=== PATIENT | male | born 1995 | race Caucasian/White ===

== ENCOUNTER 2019-03-23 12:41 | Inpatient (IN) | payer OTHER ==
[2019-03-23 13:27] VITALS: BMI 23.4
--- NOTE | 2019-03-23 16:30 | HP ---
CIWA Score Nausea/Vomitin Muscle Tremors: 3 Anxiety: 3 Agitation: 3 Paroxysmal Sweats: 1-Minimal Palms Moist Orientation: 0-Oriented Tacttile Disturbances: 1-Very Mild Itch/Numbness Auditory Disturbances: 1-Very Mild Visual Disturbances: 0-None Headache: 2-Mild CIWA-Ar Total Score: 17 - Admission Criteria OASAS Guidelines: Admission for Medically Managed Detox: Requires at least one of the followin. CIWA greater than 12 2. Seizures within the past 24 hours 3. Delirium tremens within the past 24 hours 4. Hallucinations within the past 24 hours 5. Acute intervention needed for co occurring medical disorder 6. Acute intervention needed for co occurring psychiatric disorder 7. Severe withdrawal that cannot be handled at a lower level of care (continued vomiting, continued diarrhea, abnormal vital signs) requiring intravenous medication and/or fluids 8. Admission ROS [facility] - HPI Chief Complaint: i need help to stop using xanax,klonopin,marijuana,also mmtp 120 mgs/day,last medicated today, syncope seizure last 2 months ago nicotine dependence 1 pack/day,would like nicotine patch and gum no significant period of sobriety plan to go to rehab last detox 2018 [facility] Allergies/Adverse Reactions: Allergies Allergy/AdvReac Type Severity Reaction Status Date / Time No Known Allergies Allergy Verified 03/23/19 13:17 History of Present Illness: this 23 years old male with xanax,klonopin,marijuana dependence seekig detox, mmtp 120 mgs/day seeking detox withdrawal seizure last 2 months ago plaes see chief complaint Exam Limitations: No Limitations - Ebola screening Have you traveled outside of the country in the last 21 days: No (N) Have you had contact with anyone from an Ebola affected area: No Do you have a fever: No - Review of Systems Constitutional: Loss of Appetite, Malaise, Night Sweats, Changes in sleep, Unintentional Wgt. Loss EENT: reports: Tearing, Nose Congestion Respiratory: reports: No Symptoms reported Cardiac: reports: No Symptoms Reported GI: reports: Nausea, Poor Appetite, Poor Fluid Intake : reports: No Symptoms Reported Musculoskeletal: reports: Back Pain, Muscle Pain Integumentary: reports: Dryness Neuro: reports: Headache, Tremors Endocrine: reports: No Symptoms Reported Hematology: reports: No Symptoms Reported Psychiatric: reports: No Sypmtoms Reported, Judgement Intact, Mood/Affect Appropiate, Orientated x3 Other Systems: Reviewed and Negative Patient History - Patient Medical History Hx Anemia: No Hx Asthma: No Hx Chronic Obstructive Pulmonary Disease (COPD): No Hx Cancer: No Hx Cardiac Disorders: No Hx Congestive Heart Failure: No Hx Hypertension: No Hx Hypercholesterolemia: No Hx Pacemaker: No HX Cerebrovascular Accident: No Hx Seizures: Yes (withdrawal seizure last 2 months ago) Hx Dementia: No Hx Diabetes: No Hx Gastrointestinal Disorders: No Hx Liver Disease: No Hx Genitourinary Disorders: No Hx Sexually Transmitted Disorders: No Hx Renal Disease (ESRD): No Hx Thyroid Disease: No Hx Human Immunodeficiency Virus (HIV): No (last 2018 negative) Hx Hepatitis C: No Hx Depression: No Hx Suicide Attempt: No Hx Bipolar Disorder: No Hx Schizophrenia: No Other Medical History: no suicidal,no homicidal - Patient Surgical History Past Surgical History: No - PPD History Previous Implant?: Yes Documented Results: Negative w/o proof Implanted On Prior [facility] Admission?: No PPD to be Administered?: Yes - Smoking Cessation Smoking history: Current every day smoker Have you smoked in the past 12 months: Yes Aproximately how many cigarettes per day: 10 Cigars Per Day: 0 Hx Chewing Tobacco Use: No Initiated information on smoking cessation: Yes 'Breaking Loose' booklet given: 03/23/19 - Substance & Tx. History Hx Alcohol Use: No Hx Substance Use: Yes Substance Use Type: Marijuana, Opiates, Tranquilizers Hx Substance Use Treatment: Yes ([facility] 2017) - Substances abused Alprazolam (Xanax) Substance route: Oral Frequency: Daily Amount used: 3 PILLS (2MG EACH)up to 14 mgs Age of first use: 18 Date of last use: 03/22/19 Benzodiazepine (Klonopin) Substance route: Oral Frequency: 1-2 times per week Amount used: 3 PILLS Age of first use: 18 Date of last use: 03/19/19 Marijuana/Hashish Substance route: Smoking Frequency: Daily Amount used: 2-3 BLUNTS Age of first use: 12 Date of last use: 03/23/19 Heroin Substance route: Injection Frequency: 1-2 times per week Amount used: 7 BAGS Age of first use: 15 Date of last use: 03/20/19 Family Disease History - Family Disease History Family History: Denies Admission [facility] - Vital Signs Vital Signs: Vital Signs - 24 hr 03/23/19 03/23/19 13:18 15:27 Temperature 98.4 F 98.4 F Pulse Rate 61 61 Respiratory 20 20 Rate Blood Pressure 109/64 109/64 - Physical General Appearance: Yes: Moderate Distress, Tremorous, Irritable, Sweating, Anxious HEENTM: Yes: Normocephalic, BEKAH, Pharynx Normal Respiratory: Yes: Within Normal Limits, Lungs Clear, Normal Breath Sounds Neck: Yes: No masses,lesions,Nodules, Supple, Trachea in good position Breast: Yes: Within Normal Limits Cardiology: Yes: Within Normal Limits, Regular Rhythm, Regular Rate, S1, S2 Abdominal: Yes: Within Normal Limits, Normal Bowel Sounds, Non Tender, Flat Genitourinary: Yes: Within Normal Limits Back: Yes: Muscle Spasm Musculoskeletal: Yes: full range of Motion, Back pain, Muscle Pain Extremities: Yes: Tremors Neurological: Yes: clip on sunglasses assembler II-XII NML intact, Fully Oriented, Alert, Motor Strength 5/5 Integumentary: Yes: Dry Lymphatic: Yes: Within Normal Limits - Diagnostic (1) Uncomplicated sedative, hypnotic or anxiolytic withdrawal Current Visit: Yes Status: Acute (2) Withdrawal seizures Current Visit: Yes Status: Acute (3) Syncope Current Visit: Yes Status: Acute (4) Methadone maintenance therapy patient Current Visit: Yes Status: Acute (5) Dehydration Current Visit: Yes Status: Acute (6) Nicotine dependence Current Visit: Yes Status: Acute Cleared for Admission [facility] - [facility]ox or Rehab [facility] Level of Care: Medically Managed Detox Regimen/Protocol: [employer] Urine Drug Screen - Test Device Lot number: [id number] Expiration date: 10/25/20 - Control Is test valid?: Yes - Results Drug screen NEGATIVE: No Urine drug screen results: THC-Marijuana, MTD-Methadone, BZO-Benzodiazepines Inpatient Rehab Admission - Rehab Decision to Admit Inpatient rehab admission?: No
[2019-03-23] MEDS ORDERED: MAGNESIUM HYDROX 2400MG/30ML ORAL SUSPENSION 30 ML CUP PO PRN (16:41)
[2019-03-23] MEDS ORDERED: hydrOXYzine PAMOATE 25 MG CAPSULE (FP) PO PRN (16:41)
[2019-03-23] MEDS ORDERED: BISMUTH SUBSALICYLATE 524 MG/30 ML UD PO PRN (16:41)
[2019-03-23] MEDS ORDERED: MAG HYDROX/AL HYDROX/SIMETH 30 ML UNIT-DOSE CUP PO PRN (16:41)
[2019-03-23] MEDS ORDERED: MENTHOL/PHENOL 1 EACH UD MM PRN (16:41)
[2019-03-23] MEDS ORDERED: ACETAMINOPHEN 325 MG TABLET (FP) PO PRN ×2 (16:41)
[2019-03-23] MEDS ORDERED: MAGNESIUM CITRATE 300 ML BOTTLE PO PRN (16:41)
[2019-03-23] MEDS ORDERED: IBUPROFEN 400 MG TABLET (FP) PO PRN (16:41)
[2019-03-23] MEDS: diazePAM 5 MG TABLET PO PRN (18:05)
[2019-03-23] MEDS: NICOTINE 21 MG/24 HOURS TOPICAL PATCH TD SCH (18:06)
[2019-03-23] MEDS: THIAMINE HCL 100 MG TABLET (FP) PO SCH (21:59)
[2019-03-23] MEDS: MELATONIN 5 MG TABLETS PO PRN (21:59)
[2019-03-23] MEDS: diazePAM 5 MG TABLET PO SCH (21:59)
[2019-03-24 03:21] LABS: PH,URINE 8.5 (5.0-8.0); URINE APPEARANCE CLEAR; URINE BILIRUBIN NEGATIVE (NEGATIVE); URINE COLOR YELLOW; URINE GLUCOSE (UA) NEGATIVE (NEGATIVE); URINE KETONE NEGATIVE (NEGATIVE); URINE LEUK ESTERASE NEGATIVE (NEGATIVE); URINE NITRITE NEGATIVE (NEGATIVE); URINE PROTEIN NEGATIVE (NEGATIVE); URINE UROBILINOGEN 0.2 mg/dL (0.2-1.0)
[2019-03-24] MEDS: diazePAM 5 MG TABLET PO SCH ×3 (05:53→22:22)
[2019-03-24] MEDS: METHADONE HCL 40 MG DISPERSABLE TABLET PO SCH (07:56)
[2019-03-24] MEDS: NICOTINE POLACRILEX 2 MG GUM BUC PRN ×2 (08:33→13:34)
[2019-03-24] MEDS: PRENATAL VITAMINS W/ FOLIC ACID TABLET (FP) PO SCH (10:02)
[2019-03-24] MEDS: NICOTINE 21 MG/24 HOURS TOPICAL PATCH TD SCH (10:02)
[2019-03-24] MEDS: diazePAM 5 MG TABLET PO PRN ×2 (10:03→17:28)
[2019-03-24] MEDS: METHOCARBAMOL 500 MG TABLET PO PRN (10:03)
[2019-03-24 10:09] LABS: ALBUMIN 3.2 g/dl (3.4-5.0); ALK PHOS 64 U/L (45-117); ANION GAP 3 MMOL/L (8-16); BILIRUBIN,TOTAL 0.1 mg/dL (0.2-1); BLOOD UREA NITROGEN 10 mg/dL (7-18); CALCIUM 8.8 mg/dL (8.5-10.1); CHLORIDE 103 mmol/L (98-107); CO2 33 mmol/L (21-32); CREATININE 0.8 mg/dL (0.55-1.3); GLUCOSE,RANDOM 91 mg/dL (74-106); POTASSIUM 4.7 mmol/L (3.5-5.1); SGOT/AST 11 U/L (15-37); SGPT/ALT 17 U/L (13-61); SODIUM 138 mmol/L (136-145); TOT PROT 6.4 g/dl (6.4-8.2)
[2019-03-24 10:19] LABS: HEMATOCRIT 42.1 % (35.4-49); HEMOGLOBIN 14.1 GM/dL (11.7-16.9); MCH 29.5 pg (25.7-33.7); MCHC 33.5 g/dl (32.0-35.9); MEAN CELL VOLUME 88.1 fl (80-96); MEAN PLT VOLUME 8.3 fl (7.5-11.1); PLATELET COUNT 166 K/MM3 (134-434); RBC 4.78 M/mm3 (4.00-5.60); RDW 14.1 % (11.9-15.9); WHITE BLOOD COUNT 6.2 K/mm3 (4.0-10.0)
--- NOTE | 2019-03-24 11:01 | EKG ---
Test Reason : Blood Pressure : / mmHG Vent. Rate : 040 BPM Atrial Rate : 040 BPM P-R Int : 140 ms QRS Dur : 090 ms QT Int : 508 ms P-R-T Axes : 073 050 053 degrees QTc Int : 414 ms MARKED SINUS BRADYCARDIA NONSPECIFIC ST ABNORMALITY ABNORMAL ECG NO PREVIOUS ECGS AVAILABLE Confirmed by CAT CALABRESE MD ([id number]) on 03/24/2019 11:01:32 AM Referred By: Confirmed By:CAT CALABRESE MD
[2019-03-24] MEDS ORDERED: diphenhydrAMINE HCL 50 MG CAPSULE PO PRN (13:12)
--- NOTE | 2019-03-24 13:57 | PN ---
[facility] CIWA - CIWA Score Nausea/Vomitin-No Nausea/No Vomiting Muscle Tremors: 3 Anxiety: 4-Mod. Anxious/Guarded Agitation: 0-Normal Activity Paroxysmal Sweats: No Perspiration Orientation: 2-Disoriented Date<2 days Tacttile Disturbances: 2-Mild Itch/Numbness/Burn Auditory Disturbances: 1-Very Mild Visual Disturbances: 2-Mild Sensitivity Headache: 0-None Present CIWA-Ar Total Score: 14 S Progress Note (SOAP) Subjective: Tremors, Body Aches, Interrupted sleep, Anxiety, Diarrhea. Objective: PATIENT A & O X 2 (UNCERTAIN ABOUT CURRENT DAY / DATE). PATIENT OBSERVED AMBULATING ON UNIT UNASSISTED. IN NO ACUTE DISTRESS. 03/24/19 13:55 Vital Signs Temperature 98.6 F 03/24/19 13:03 Pulse Rate 85 03/24/19 13:03 Respiratory Rate 18 03/24/19 13:03 Blood Pressure 123/79 03/24/19 13:03 O2 Sat by Pulse Oximetry (%) Laboratory Tests 03/23/19 03/24/19 03/24/19 22:58 07:00 07:00 WBC 6.2 RBC 4.78 Hgb 14.1 Hct 42.1 MCV 88.1 MCH 29.5 MCHC 33.5 RDW 14.1 Plt Count 166 MPV 8.3 Sodium 138 Potassium 4.7 Chloride 103 Carbon Dioxide 33 H Anion Gap 3 L BUN 10 Creatinine 0.8 Creat Clearance w eGFR 122.03 Random Glucose 91 Calcium 8.8 Total Bilirubin 0.1 L AST 11 L ALT 17 Alkaline Phosphatase 64 Total Protein 6.4 Albumin 3.2 L Urine Color Yellow Urine Appearance Clear Urine pH 8.5 H Ur Specific [place] 1.008 L Urine Protein Negative Urine Glucose (UA) Negative Urine Ketones Negative Urine Blood Negative Urine Nitrite Negative Urine Bilirubin Negative Urine Urobilinogen 0.2 Ur Leukocyte Esterase Negative RPR Titer 03/24/19 07:00 WBC RBC Hgb Hct MCV MCH MCHC RDW Plt Count MPV Sodium Potassium Chloride Carbon Dioxide Anion Gap BUN Creatinine Creat Clearance w eGFR Random Glucose Calcium Total Bilirubin AST ALT Alkaline Phosphatase Total Protein Albumin Urine Color Urine Appearance Urine pH Ur Specific [place] Urine Protein Urine Glucose (UA) Urine Ketones Urine Blood Urine Nitrite Urine Bilirubin Urine Urobilinogen Ur Leukocyte Esterase RPR Titer Nonreactive LABS NOTED. Assessment: 03/24/19 13:56 WITHDRAWAL SYMPTOMS. Plan: CONTINUE DETOX. INCREASE DAILY PO FLUID / WATER INTAKE. PRN BENADRYL PO FOR DIARRHEA.
[2019-03-24] MEDS: THIAMINE HCL 100 MG TABLET (FP) PO SCH (22:22)
[2019-03-24] MEDS: MELATONIN 5 MG TABLETS PO PRN (22:23)
[2019-03-25] MEDS: METHADONE HCL 40 MG DISPERSABLE TABLET PO SCH (05:51)
[2019-03-25] MEDS: diazePAM 5 MG TABLET PO PRN ×3 (05:55→16:47)
[2019-03-25] MEDS: NICOTINE POLACRILEX 2 MG GUM BUC PRN ×2 (08:45→13:35)
[2019-03-25] MEDS: METHOCARBAMOL 500 MG TABLET PO PRN (09:16)
[2019-03-25] MEDS: PRENATAL VITAMINS W/ FOLIC ACID TABLET (FP) PO SCH (09:21)
[2019-03-25] MEDS: NICOTINE 21 MG/24 HOURS TOPICAL PATCH TD SCH (09:21)
[2019-03-25] MEDS: diazePAM 5 MG TABLET PO SCH ×2 (09:21→21:53)
--- NOTE | 2019-03-25 15:35 | PN ---
[facility] CIWA - CIWA Score Nausea/Vomitin-Mild Nausea/No Vomiting Muscle Tremors: 2 Anxiety: 3 Agitation: 2 Paroxysmal Sweats: 1-Minimal Palms Moist Orientation: 1-Uncertain about Date Tacttile Disturbances: 0-None Auditory Disturbances: 0-None Visual Disturbances: 0-None Headache: 1-Very Mild CIWA-Ar Total Score: 11 S Progress Note (SOAP) Subjective: received methadone 120 mg po today feeling ok reporting taking xanax for anxiety that long history of anxiety treated with xanax patient requesting xanax prescription upon discharge discuss risk of xanax discuss follow up with psychiatrist for xanax upon discharge to the community Objective: 03/25/19 15:33 Vital Signs Temperature 97.5 F L 03/25/19 14:12 Pulse Rate 62 03/25/19 14:12 Respiratory Rate 18 03/25/19 14:12 Blood Pressure 95/52 L 03/25/19 14:12 O2 Sat by Pulse Oximetry (%) Laboratory Last Values WBC 6.2 K/mm3 (4.0-10.0) 03/24/19 07:00 RBC 4.78 M/mm3 (4.00-5.60) 03/24/19 07:00 Hgb 14.1 GM/dL (11.7-16.9) 03/24/19 07:00 Hct 42.1 % (35.4-49) 03/24/19 07:00 MCV 88.1 fl (80-96) 03/24/19 07:00 MCH 29.5 pg (25.7-33.7) 03/24/19 07:00 MCHC 33.5 g/dl (32.0-35.9) 03/24/19 07:00 RDW 14.1 % (11.9-15.9) 03/24/19 07:00 Plt Count 166 K/MM3 (134-434) 03/24/19 07:00 MPV 8.3 fl (7.5-11.1) 03/24/19 07:00 Sodium 138 mmol/L (136-145) 03/24/19 07:00 Potassium 4.7 mmol/L (3.5-5.1) 03/24/19 07:00 Chloride 103 mmol/L (98-107) 03/24/19 07:00 Carbon Dioxide 33 mmol/L (21-32) H 03/24/19 07:00 Anion Gap 3 MMOL/L (8-16) L 03/24/19 07:00 BUN 10 mg/dL (7-18) 03/24/19 07:00 Creatinine 0.8 mg/dL (0.55-1.3) 03/24/19 07:00 Creat Clearance w eGFR 122.03 (>60) 03/24/19 07:00 Random Glucose 91 mg/dL (74-106) 03/24/19 07:00 Calcium 8.8 mg/dL (8.5-10.1) 03/24/19 07:00 Total Bilirubin 0.1 mg/dL (0.2-1) L 03/24/19 07:00 AST 11 U/L (15-37) L 03/24/19 07:00 ALT 17 U/L (13-61) 03/24/19 07:00 Alkaline Phosphatase 64 U/L (45-117) 03/24/19 07:00 Total Protein 6.4 g/dl (6.4-8.2) 03/24/19 07:00 Albumin 3.2 g/dl (3.4-5.0) L 03/24/19 07:00 Urine Color Yellow 03/23/19 22:58 Urine Appearance Clear 03/23/19 22:58 Urine pH 8.5 (5.0-8.0) H 03/23/19 22:58 Ur Specific [place] 1.008 (1.010-1.035) L 03/23/19 22:58 Urine Protein Negative (NEGATIVE) 03/23/19 22:58 Urine Glucose (UA) Negative (NEGATIVE) 03/23/19 22:58 Urine Ketones Negative (NEGATIVE) 03/23/19 22:58 Urine Blood Negative (NEGATIVE) 03/23/19 22:58 Urine Nitrite Negative (NEGATIVE) 03/23/19 22:58 Urine Bilirubin Negative (NEGATIVE) 03/23/19 22:58 Urine Urobilinogen 0.2 mg/dL (0.2-1.0) 03/23/19 22:58 Ur Leukocyte Esterase Negative (NEGATIVE) 03/23/19 22:58 RPR Titer Nonreactive (NONREACTIVE) 03/24/19 07:00 lab noted Assessment: 03/25/19 15:34 benzo withdrawal sx psychiatric referral that patient requesying to be seen by psychiatrist of anxiety Plan: continue detox anxiety referral to psychiatrist
[2019-03-25] MEDS ORDERED: diphenhydrAMINE HCL 25 MG CAPSULE (FP) PO ONE (20:45)
[2019-03-25] MEDS: THIAMINE HCL 100 MG TABLET (FP) PO SCH (21:53)
[2019-03-26] MEDS: METHADONE HCL 40 MG DISPERSABLE TABLET PO SCH (05:26)
[2019-03-26] MEDS ORDERED: diazePAM 5 MG TABLET PO SCH (06:00)
[2019-03-26 06:35] VITALS: BP 99/56; PULSE 53; TEMP 97.4
[2019-03-26] MEDS: diazePAM 5 MG TABLET PO PRN (07:47)
[2019-03-26] MEDS: NICOTINE 21 MG/24 HOURS TOPICAL PATCH TD SCH (09:09)
[2019-03-26] MEDS: PRENATAL VITAMINS W/ FOLIC ACID TABLET (FP) PO SCH (09:09)
--- NOTE | 2019-03-26 11:43 | DS ---
[facility] Detox Discharge Summary Admission Date: 03/23/19 Discharge Date: 03/26/19 - History Present History: Sedative Dependence Additional Comments: 23 years old male admitted on 03/23/19 for benzo withdrawal stabilization feeling better today wants to return to methadone program for medical and mental issues aftercare community self help group denies suicidal ideation alert no acute distress Pertinent Past History: bring in medication list and lab report to follow up appointment - Physical Exam Results Vital Signs: Vital Signs Temperature 97.4 F L 03/26/19 06:33 Pulse Rate 53 L 03/26/19 06:33 Respiratory Rate 18 03/26/19 06:33 Blood Pressure 99/56 L 03/26/19 06:33 O2 Sat by Pulse Oximetry (%) Pertinent Admission Physical Exam Findings: benzo withdrawal sx Laboratory Last Values WBC 6.2 K/mm3 (4.0-10.0) 03/24/19 07:00 RBC 4.78 M/mm3 (4.00-5.60) 03/24/19 07:00 Hgb 14.1 GM/dL (11.7-16.9) 03/24/19 07:00 Hct 42.1 % (35.4-49) 03/24/19 07:00 MCV 88.1 fl (80-96) 03/24/19 07:00 MCH 29.5 pg (25.7-33.7) 03/24/19 07:00 MCHC 33.5 g/dl (32.0-35.9) 03/24/19 07:00 RDW 14.1 % (11.9-15.9) 03/24/19 07:00 Plt Count 166 K/MM3 (134-434) 03/24/19 07:00 MPV 8.3 fl (7.5-11.1) 03/24/19 07:00 Sodium 138 mmol/L (136-145) 03/24/19 07:00 Potassium 4.7 mmol/L (3.5-5.1) 03/24/19 07:00 Chloride 103 mmol/L (98-107) 03/24/19 07:00 Carbon Dioxide 33 mmol/L (21-32) H 03/24/19 07:00 Anion Gap 3 MMOL/L (8-16) L 03/24/19 07:00 BUN 10 mg/dL (7-18) 03/24/19 07:00 Creatinine 0.8 mg/dL (0.55-1.3) 03/24/19 07:00 Creat Clearance w eGFR 122.03 (>60) 03/24/19 07:00 Random Glucose 91 mg/dL (74-106) 03/24/19 07:00 Calcium 8.8 mg/dL (8.5-10.1) 03/24/19 07:00 Total Bilirubin 0.1 mg/dL (0.2-1) L 03/24/19 07:00 AST 11 U/L (15-37) L 03/24/19 07:00 ALT 17 U/L (13-61) 03/24/19 07:00 Alkaline Phosphatase 64 U/L (45-117) 03/24/19 07:00 Total Protein 6.4 g/dl (6.4-8.2) 03/24/19 07:00 Albumin 3.2 g/dl (3.4-5.0) L 03/24/19 07:00 Urine Color Yellow 03/23/19 22:58 Urine Appearance Clear 03/23/19 22:58 Urine pH 8.5 (5.0-8.0) H 03/23/19 22:58 Ur Specific [place] 1.008 (1.010-1.035) L 03/23/19 22:58 Urine Protein Negative (NEGATIVE) 03/23/19 22:58 Urine Glucose (UA) Negative (NEGATIVE) 03/23/19 22:58 Urine Ketones Negative (NEGATIVE) 03/23/19 22:58 Urine Blood Negative (NEGATIVE) 03/23/19 22:58 Urine Nitrite Negative (NEGATIVE) 03/23/19 22:58 Urine Bilirubin Negative (NEGATIVE) 03/23/19 22:58 Urine Urobilinogen 0.2 mg/dL (0.2-1.0) 03/23/19 22:58 Ur Leukocyte Esterase Negative (NEGATIVE) 03/23/19 22:58 RPR Titer Nonreactive (NONREACTIVE) 03/24/19 07:00 lab noted - Treatment Hospital Course: Detox Protocol Followed, Detoxed Safely, Responded well, Discharged Condition Good, Rehab Referral Accepted Patient has Accepted a Rehab Referral to: methadone maintenance program - Medication Discharge Medications: Ambulatory Orders Methadone [Dolophine -] 120 mg PO DAILY 03/23/19 - Diagnosis (1) Methadone maintenance therapy patient Status: Chronic (2) Nicotine dependence Status: Acute Qualifiers: Nicotine product type: cigarettes Substance use status: in withdrawal Qualified Code(s): F17.213 - Nicotine dependence, cigarettes, with withdrawal (3) Uncomplicated sedative, hypnotic or anxiolytic withdrawal Status: Acute - AMA Did Patient Leave Against Medical Advice: No
== END 2019-03-26 08:55 | disposition home or self-care (01) | DRG 773 ==
LOC: YASAS 12:41 → Y3N 17:00
PROVIDERS: ADMIT Surgery; ATTEND Surgery
PROC: HZ2ZZZZ Detoxification Services for Substance Abuse Treatment (ICD-10-PCS; principal; 2019-03-23)
DX: F13.230 Sedative, hypnotic or anxiolytic dependence with withdrawal, uncomplicated (principal); F11.20 Opioid dependence, uncomplicated; F17.213 Nicotine dependence, cigarettes, with withdrawal; E86.0 Dehydration; R55 Syncope and collapse; G40.509 Epileptic seizures related to external causes, not intractable, without status epilepticus
CPT/HCPCS: 36415; 80053; 81003; 85027; 86593; 93005; 93010

== ENCOUNTER 2019-05-19 14:54 | Inpatient (IN) | payer OTHER ==
[2019-05-19 17:00] VITALS: BMI 22.3
--- NOTE | 2019-05-19 18:44 | HP ---
CIWA Score Nausea/Vomitin-Mild Nausea/No Vomiting Muscle Tremors: 2 Anxiety: 5 Agitation: 6 Paroxysmal Sweats: 1-Minimal Palms Moist Orientation: 0-Oriented Tacttile Disturbances: 0-None Auditory Disturbances: 0-None Visual Disturbances: 0-None Headache: 0-None Present CIWA-Ar Total Score: 15 - Admission Criteria OASAS Guidelines: Admission for Medically Managed Detox: Requires at least one of the followin. CIWA greater than 12 2. Seizures within the past 24 hours 3. Delirium tremens within the past 24 hours 4. Hallucinations within the past 24 hours 5. Acute intervention needed for co occurring medical disorder 6. Acute intervention needed for co occurring psychiatric disorder 7. Severe withdrawal that cannot be handled at a lower level of care (continued vomiting, continued diarrhea, abnormal vital signs) requiring intravenous medication and/or fluids 8. Patient presents the following: CIWA greater than 12 Admission Criteria Met: Admission criteria met Admission ROS S - HPI Chief Complaint: xanax/klonopin detox 23 yo with a long h/o benzo use, on methadone program in [place]. Here for detox. h/o anxiety pt with recent laceration- with splint in place- pt has dressing change material with him- pt will keep with his property DUR- no meds Allergies/Adverse Reactions: Allergies Allergy/AdvReac Type Severity Reaction Status Date / Time No Known Allergies Allergy Verified 05/19/19 16:52 - Ebola screening Have you traveled outside of the country in the last 21 days: No Have you had contact with anyone from an Ebola affected area: No Patient History - Patient Medical History Hx Anemia: No Hx Asthma: No Hx Chronic Obstructive Pulmonary Disease (COPD): No Hx Cancer: No Hx Cardiac Disorders: No Hx Congestive Heart Failure: No Hx Hypertension: No Hx Hypercholesterolemia: No Hx Pacemaker: No HX Cerebrovascular Accident: No Hx Seizures: Yes (withdrawal seizure last 2 months ago) Hx Dementia: No Hx Diabetes: No Hx Gastrointestinal Disorders: No Hx Liver Disease: No Hx Genitourinary Disorders: No Hx Sexually Transmitted Disorders: No Hx Renal Disease (ESRD): No Hx Thyroid Disease: No Hx Human Immunodeficiency Virus (HIV): No (last 2017 negative) Hx Hepatitis C: No Hx Depression: No Hx Suicide Attempt: No Hx Bipolar Disorder: No Hx Schizophrenia: No - Patient Surgical History Past Surgical History: No - PPD History Date: 03/25/19 - Smoking Cessation Smoking history: Current every day smoker Have you smoked in the past 12 months: Yes Aproximately how many cigarettes per day: 20 Cigars Per Day: 0 Hx Chewing Tobacco Use: No Initiated information on smoking cessation: Yes 'Breaking Loose' booklet given: 05/19/19 - Substances abused Alprazolam (Xanax) Substance route: Oral Frequency: Daily Amount used: 3 PILLS (2MG EACH)up to 14 mgs Age of first use: 18 Date of last use: 05/18/19 Benzodiazepine (Klonopin) Substance route: Oral Frequency: 1-2 times per week Amount used: 3 PILLS Age of first use: 18 Date of last use: 05/18/19 Marijuana/Hashish Substance route: Smoking Frequency: Daily Amount used: 2-3 BLUNTS Age of first use: 12 Date of last use: 05/19/19 Heroin Substance route: Injection Frequency: 1-2 times per week Amount used: 7 BAGS Age of first use: 15 Date of last use: 05/18/19 Admission Physical Exam [facility] - Vital Signs Vital Signs: Vital Signs - 24 hr 05/19/19 16:52 Temperature 98.2 F Pulse Rate 71 Respiratory 18 Rate Blood Pressure 114/66 - Physical General Appearance: Yes: Moderate Distress HEENTM: Yes: Within Normal Limits, Hearing grossly Normal Respiratory: Yes: Within Normal Limits Neck: Yes: Within Normal Limits Cardiology: Yes: Within Normal Limits, S1, S2 Back: Yes: Within Normal Limits Extremities: Yes: Other (L middle finger with laceration- with splint in place) Neurological: Yes: Within Normal Limits, Fully Oriented Integumentary: Yes: Within Normal Limits, Track [place] Breathalyzer - Breathalyzer Breathalyzer: 0 Urine Drug Screen - Test Device Lot number: [id number] Expiration date: 01/23/21 - Control Is test valid?: Yes - Results Drug screen NEGATIVE: No Urine drug screen results: THC-Marijuana, MOP-Opiates, MTD-Methadone, BZO- Benzodiazepines Inpatient Rehab Admission - Rehab Decision to Admit Inpatient rehab admission?: No
[2019-05-19] MEDS ORDERED: BISMUTH SUBSALICYLATE 524 MG/30 ML UD PO PRN (18:52)
[2019-05-19] MEDS ORDERED: ONDANSETRON *ODT* 4 MG TABLET SL PRN (18:52)
[2019-05-19] MEDS ORDERED: ACETAMINOPHEN 325 MG TABLET (FP) PO PRN ×2 (18:52)
[2019-05-19] MEDS ORDERED: MAGNESIUM CITRATE 300 ML BOTTLE PO PRN (18:52)
[2019-05-19] MEDS ORDERED: MAGNESIUM HYDROX 2400MG/30ML ORAL SUSPENSION 30 ML CUP PO PRN (18:52)
[2019-05-19] MEDS ORDERED: diazePAM 5 MG TABLET PO ONE (18:52)
[2019-05-19] MEDS ORDERED: MENTHOL/PHENOL 1 EACH UD MM PRN (18:52)
[2019-05-19] MEDS ORDERED: MAG HYDROX/AL HYDROX/SIMETH 30 ML UNIT-DOSE CUP PO PRN (18:52)
[2019-05-19] MEDS: hydrOXYzine PAMOATE 50 MG CAPSULE (FP) PO PRN (20:00)
[2019-05-19] MEDS: NICOTINE POLACRILEX 4 MG GUM BUC PRN (20:30)
[2019-05-19] MEDS ORDERED: QUEtiapine FUMARATE 50 MG TABLET PO SCH (22:00)
[2019-05-19] MEDS: THIAMINE HCL 100 MG TABLET (FP) PO SCH (22:28)
[2019-05-19] MEDS: diazePAM 5 MG TABLET PO SCH (22:28)
[2019-05-19] MEDS: MELATONIN 5 MG TABLETS PO PRN (22:28)
[2019-05-20] MEDS: diazePAM 5 MG TABLET PO SCH ×3 (05:10→22:26)
[2019-05-20] MEDS: diazePAM 5 MG TABLET PO PRN ×3 (07:24→17:51)
[2019-05-20] MEDS: hydrOXYzine PAMOATE 50 MG CAPSULE (FP) PO PRN ×3 (07:24→22:25)
[2019-05-20] MEDS: NICOTINE POLACRILEX 4 MG GUM BUC PRN (07:32)
[2019-05-20] MEDS ORDERED: METHADONE HCL 40 MG DISPERSABLE TABLET PO ONE (07:45)
[2019-05-20 10:09] LABS: HEMOGLOBIN 14.5 GM/dL (11.7-16.9); MCH 29.1 pg (25.7-33.7); MCHC 32.9 g/dl (32.0-35.9); MEAN CELL VOLUME 88.3 fl (80-96); MEAN PLT VOLUME 8.6 fl (7.5-11.1); RBC 4.99 M/mm3 (4.00-5.60); RDW 13.5 % (11.9-15.9); WHITE BLOOD COUNT 5.7 K/mm3 (4.0-10.0)
[2019-05-20 10:21] LABS: ALBUMIN 3.4 g/dl (3.4-5.0); BILIRUBIN,TOTAL 0.2 mg/dL (0.2-1); BLOOD UREA NITROGEN 12.5 mg/dL (7-18); CALCIUM 9.1 mg/dL (8.5-10.1); CREATININE 0.9 mg/dL (0.55-1.3); POTASSIUM 4.5 mmol/L (3.5-5.1); TOT PROT 6.4 g/dl (6.4-8.2)
[2019-05-20] MEDS: PRENATAL VITAMINS W/ FOLIC ACID TABLET (FP) PO SCH (10:24)
[2019-05-20] MEDS: METHOCARBAMOL 500 MG TABLET PO PRN ×2 (10:26→17:51)
[2019-05-20] MEDS: NICOTINE 21 MG/24 HOURS TOPICAL PATCH TD SCH (10:27)
[2019-05-20 10:48] LABS: PLATELET COUNT 191 K/MM3 (134-434)
[2019-05-20] MEDS: IBUPROFEN 400 MG TABLET (FP) PO PRN (13:47)
[2019-05-20] MEDS: cloNIDine HCL 0.1 MG TABLET PO PRN ×2 (13:47→19:29)
--- NOTE | 2019-05-20 15:11 | CONSULT ---
[facility] Psychiatric Consult - Data Date of interview: 05/20/19 Admission source: [facility] Identifying data: Readmission to [facility] for this 23 y/o male self- referred for detoxification (heroin, cannabis, xanax). Examined at [address] [place] [address]. Patient is single, a father of one, homeless (intermediate), unemployed and supported on welfare. Substance Abuse History: Confirmed by patient. Details in current [facility] report : Smoking history: Current every day smoker. Have you smoked in the past 12 months: Yes. Aproximately how many cigarettes per day: 20. Cigars Per Day: 0. Hx Chewing Tobacco Use: No. Initiated information on smoking cessation: Yes. 'Breaking Loose' booklet given: 05/19/19. - Substances abused. Alprazolam (Xanax). Substance route: Oral. Frequency: Daily. Amount used: 3 PILLS (2MG EACH)up to 14 mgs. Age of first use: 18. Date of last use: . Benzodiazepine (Klonopin). Substance route: Oral. Frequency: 1-2 times per week. Amount used: 3 PILLS. Age of first use: 18. Date of last use : 05/18/19. Marijuana/Hashish. Substance route: Smoking. Frequency: Daily. Amount used: 2-3 BLUNTS. Age of first use: 12. Date of last use: 05/19. Heroin. Substance route: Injection. Frequency: 1-2 times per week. Amount used: 7 BAGS. Age of first use: 15. Date of last use: 05/18/19 Medical History: History of withdrawal-related seizures. Noted left middle finger in a splint (injured prior to [facility] visit). Psychiatric History: Patient denies history of psychiatric hospitalizations. Mr Kirkland states that he used to be on wellbutrin, seroquel and zoloft. No psychiatric OPD care. Maintained on methadone 120 mg/day at the [place] [facility] program ([facility]). Patient denies history of suicide attempts. Physical/Sexual Abuse/Trauma History: Patient denies. Additional Comment: Urine drug screen results: THC-Marijuana, MOP-Opiates, MTD- Methadone, BZO-Benzodiazepines. Noted. Mental Status Exam - Mental Status Exam Alert and Oriented to: Time, Place, Person Cognitive Function: Good Patient Appearance: Well Groomed Mood: Nervous, Withdrawn, Anxious Affect: Labile Patient Behavior: Inappropriate (medication-seeking), Restless, Cooperative Speech Pattern: Clear Voice Loudness: Normal Thought Process: Goal Oriented Thought Disorder: Not Present Hallucinations: Denies Suicidal Ideation: Denies Homicidal Ideation: Denies Insight/Judgement: Poor Sleep: Poorly, Difficulty falling asleep Appetite: Good Muscle strength/Tone: Normal Gait/Station: Normal Psychiatric Findings - Problem List ([place] 1, 2,3) (1) Uncomplicated sedative, hypnotic or anxiolytic withdrawal Current Visit: Yes Status: Acute (2) Opioid dependence on agonist therapy Current Visit: Yes Status: Chronic (3) Cannabis dependence Current Visit: Yes Status: Chronic (4) Nicotine dependence Current Visit: Yes Status: Chronic Qualifiers: Nicotine product type: cigarettes Substance use status: in withdrawal Qualified Code(s): F17.213 - Nicotine dependence, cigarettes, with withdrawal (5) Substance induced mood disorder Current Visit: Yes Status: Chronic (6) Insomnia Current Visit: Yes Status: Chronic - Initial Treatment Plan Initial Treatment Plan: Psychoeducation. Sleep hygiene. Detoxification. Seroquel 100 mg po hs. Side effects/benefits discussed with patient (self request). Verbal consent granted to MD. Sar[place].
--- NOTE | 2019-05-20 15:30 | PN ---
S CIWA - CIWA Score Nausea/Vomitin-No Nausea/No Vomiting Muscle Tremors: 2 Anxiety: 4-Mod. Anxious/Guarded Agitation: 5 Paroxysmal Sweats: 2 Orientation: 0-Oriented Tacttile Disturbances: 2-Mild Itch/Numbness/Burn Auditory Disturbances: 0-None Visual Disturbances: 2-Mild Sensitivity Headache: 0-None Present CIWA-Ar Total Score: 17 [facility] Progress Note (SOAP) Subjective: Tremors, Anxious (Severe), Restless, Sweating. Objective: PATIENT A & O X 3, OBSERVED AMBULATING ON UNIT UNASSISTED. IN NO ACUTE DISTRESS. 05/20/19 15:31 Vital Signs Temperature 96.7 F L 05/20/19 13:28 Pulse Rate 50 L 05/20/19 13:28 Respiratory Rate 18 05/20/19 13:28 Blood Pressure 112/68 05/20/19 13:28 O2 Sat by Pulse Oximetry (%) Laboratory Tests 05/20/19 05/20/19 05/20/19 07:00 07:00 07:00 WBC 5.7 RBC 4.99 Hgb 14.5 Hct 44.0 MCV 88.3 MCH 29.1 MCHC 32.9 RDW 13.5 Plt Count 191 MPV 8.6 Sodium 143 Potassium 4.5 Chloride 107 Carbon Dioxide 34 H Anion Gap 3 L BUN 12.5 Creatinine 0.9 Est GFR (CKD-EPI)AfAm 141.01 Est GFR (CKD-EPI)NonAf 121.66 Random Glucose 85 Calcium 9.1 Total Bilirubin 0.2 AST 12 L ALT 19 Alkaline Phosphatase 56 Total Protein 6.4 Albumin 3.4 RPR Titer Nonreactive HIV 1&2 Antibody Screen HIV P24 Antigen 05/20/19 07:00 WBC RBC Hgb Hct MCV MCH MCHC RDW Plt Count MPV Sodium Potassium Chloride Carbon Dioxide Anion Gap BUN Creatinine Est GFR (CKD-EPI)AfAm Est GFR (CKD-EPI)NonAf Random Glucose Calcium Total Bilirubin AST ALT Alkaline Phosphatase Total Protein Albumin RPR Titer HIV 1&2 Antibody Screen Negative HIV P24 Antigen Negative LABS NOTED. Assessment: 05/20/19 15:32 WITHDRAWAL SYMPTOMS. Plan: CONTINUE DETOX.
[2019-05-20] MEDS: MELATONIN 5 MG TABLETS PO PRN (22:26)
[2019-05-20] MEDS: THIAMINE HCL 100 MG TABLET (FP) PO SCH (22:26)
[2019-05-20] MEDS: QUEtiapine FUMARATE 100 MG TABLET (FP) PO SCH (22:26)
[2019-05-21] MEDS: diazePAM 5 MG TABLET PO PRN ×3 (07:44→17:44)
[2019-05-21] MEDS: METHOCARBAMOL 500 MG TABLET PO PRN ×2 (07:44→17:45)
[2019-05-21] MEDS: METHADONE HCL 40 MG DISPERSABLE TABLET PO SCH (07:44)
[2019-05-21] MEDS: PRENATAL VITAMINS W/ FOLIC ACID TABLET (FP) PO SCH (10:07)
[2019-05-21] MEDS: NICOTINE 21 MG/24 HOURS TOPICAL PATCH TD SCH (10:07)
[2019-05-21] MEDS: diazePAM 5 MG TABLET PO SCH ×2 (10:07→21:48)
[2019-05-21] MEDS: IBUPROFEN 400 MG TABLET (FP) PO PRN (10:08)
[2019-05-21] MEDS: NICOTINE POLACRILEX 4 MG GUM BUC PRN ×2 (10:10→13:53)
[2019-05-21] MEDS: BACITRACIN 15 GM TUBE TOPICAL OINTMENT TP SCH ×2 (12:29→21:48)
[2019-05-21] MEDS: hydrOXYzine PAMOATE 50 MG CAPSULE (FP) PO PRN ×3 (13:53→21:48)
--- NOTE | 2019-05-21 14:48 | PN ---
S CIWA - CIWA Score Nausea/Vomitin Muscle Tremors: 3 Anxiety: 4-Mod. Anxious/Guarded Agitation: 5 Paroxysmal Sweats: 2 Orientation: 0-Oriented Tacttile Disturbances: 2-Mild Itch/Numbness/Burn Auditory Disturbances: 0-None Visual Disturbances: 0-None Headache: 0-None Present CIWA-Ar Total Score: 19 BHS Progress Note (SOAP) Subjective: Constipation, Anxious (Severe), Restless (Severe), Nausea, Body Aches, Tremors. Objective: PATIENT A & O X 3, OBSERVED AMBULATING ON UNIT UNASSISTED. IN NO ACUTE DISTRESS. 05/21/19 14:47 Vital Signs Temperature 97.3 F L 05/21/19 13:02 Pulse Rate 64 05/21/19 13:02 Respiratory Rate 18 05/21/19 13:02 Blood Pressure 120/86 05/21/19 13:02 O2 Sat by Pulse Oximetry (%) Laboratory Tests 05/20/19 05/20/19 05/20/19 07:00 07:00 07:00 WBC 5.7 RBC 4.99 Hgb 14.5 Hct 44.0 MCV 88.3 MCH 29.1 MCHC 32.9 RDW 13.5 Plt Count 191 MPV 8.6 Sodium 143 Potassium 4.5 Chloride 107 Carbon Dioxide 34 H Anion Gap 3 L BUN 12.5 Creatinine 0.9 Est GFR (CKD-EPI)AfAm 141.01 Est GFR (CKD-EPI)NonAf 121.66 Random Glucose 85 Calcium 9.1 Total Bilirubin 0.2 AST 12 L ALT 19 Alkaline Phosphatase 56 Total Protein 6.4 Albumin 3.4 RPR Titer Nonreactive HIV 1&2 Antibody Screen HIV P24 Antigen 05/20/19 07:00 WBC RBC Hgb Hct MCV MCH MCHC RDW Plt Count MPV Sodium Potassium Chloride Carbon Dioxide Anion Gap BUN Creatinine Est GFR (CKD-EPI)AfAm Est GFR (CKD-EPI)NonAf Random Glucose Calcium Total Bilirubin AST ALT Alkaline Phosphatase Total Protein Albumin RPR Titer HIV 1&2 Antibody Screen Negative HIV P24 Antigen Negative LABS NOTED. Assessment: 05/21/19 14:47 WITHDRAWAL SYMPTOMS. Plan: CONTINUE DETOX. INCREASE DAILY PO WATER INTAKE. PRN MOM FOR CONSTIPATION. PRN ZOFRAN SL FOR NAUSEA.
[2019-05-21] MEDS: THIAMINE HCL 100 MG TABLET (FP) PO SCH (21:48)
[2019-05-21] MEDS: QUEtiapine FUMARATE 100 MG TABLET (FP) PO SCH (21:48)
[2019-05-22] MEDS ORDERED: diazePAM 5 MG TABLET PO SCH (06:00)
[2019-05-22] MEDS: METHADONE HCL 40 MG DISPERSABLE TABLET PO SCH (06:58)
[2019-05-22] MEDS: METHOCARBAMOL 500 MG TABLET PO PRN (07:00)
[2019-05-22] MEDS: diazePAM 5 MG TABLET PO PRN ×3 (08:56→17:17)
[2019-05-22] MEDS: PRENATAL VITAMINS W/ FOLIC ACID TABLET (FP) PO SCH (10:14)
[2019-05-22] MEDS: BACITRACIN 15 GM TUBE TOPICAL OINTMENT TP SCH ×2 (10:14→21:53)
[2019-05-22] MEDS: NICOTINE 21 MG/24 HOURS TOPICAL PATCH TD SCH (10:14)
[2019-05-22] MEDS: NICOTINE POLACRILEX 4 MG GUM BUC PRN ×3 (10:56→17:17)
[2019-05-22] MEDS: BACLOFEN 10 MG TABLET (FP) PO PRN ×2 (13:16→21:53)
--- NOTE | 2019-05-22 15:01 | PN ---
S CIWA - CIWA Score Nausea/Vomitin Muscle Tremors: 2 Anxiety: 3 Agitation: 4-Moderately Restless Paroxysmal Sweats: No Perspiration Orientation: 0-Oriented Tacttile Disturbances: 2-Mild Itch/Numbness/Burn Auditory Disturbances: 0-None Visual Disturbances: 0-None Headache: 0-None Present CIWA-Ar Total Score: 13 BHS Progress Note (SOAP) Subjective: Anxious, Restless, Nausea, Body Aches. Objective: PATIENT A & O X 3, OBSERVED AMBULATING ON UNIT UNASSISTED. IN NO ACUTE DISTRESS. 05/22/19 15:02 Vital Signs Temperature 97.0 F L 05/22/19 13:09 Pulse Rate 65 05/22/19 13:09 Respiratory Rate 18 05/22/19 13:09 Blood Pressure 122/75 05/22/19 13:09 O2 Sat by Pulse Oximetry (%) Laboratory Tests 05/20/19 05/20/19 05/20/19 07:00 07:00 07:00 WBC 5.7 RBC 4.99 Hgb 14.5 Hct 44.0 MCV 88.3 MCH 29.1 MCHC 32.9 RDW 13.5 Plt Count 191 MPV 8.6 Sodium 143 Potassium 4.5 Chloride 107 Carbon Dioxide 34 H Anion Gap 3 L BUN 12.5 Creatinine 0.9 Est GFR (CKD-EPI)AfAm 141.01 Est GFR (CKD-EPI)NonAf 121.66 Random Glucose 85 Calcium 9.1 Total Bilirubin 0.2 AST 12 L ALT 19 Alkaline Phosphatase 56 Total Protein 6.4 Albumin 3.4 RPR Titer Nonreactive HIV 1&2 Antibody Screen HIV P24 Antigen 05/20/19 07:00 WBC RBC Hgb Hct MCV MCH MCHC RDW Plt Count MPV Sodium Potassium Chloride Carbon Dioxide Anion Gap BUN Creatinine Est GFR (CKD-EPI)AfAm Est GFR (CKD-EPI)NonAf Random Glucose Calcium Total Bilirubin AST ALT Alkaline Phosphatase Total Protein Albumin RPR Titer HIV 1&2 Antibody Screen Negative HIV P24 Antigen Negative LABS NOTED. Assessment: 05/22/19 15:03 WITHDRAWAL SYMPTOMS. Plan: CONTINUE DETOX. PRN BACLOFEN PO ORDERED FOR BODY ACHES / MUSCLE SPASMS. DUE TO SEVERITY OF LINGERING WITHDRAWAL SYMPTOMS, PATIENT PERMITTED TO REMAIN ON DETOX UNIT UNTIL TOMORROW, 05/23/2019, AT WHICH TIME HE WILL BE DISCHARGED POSSIBLY TO GO TO REHAB.
[2019-05-22] MEDS: QUEtiapine FUMARATE 100 MG TABLET (FP) PO SCH (21:53)
[2019-05-22] MEDS: hydrOXYzine PAMOATE 50 MG CAPSULE (FP) PO PRN (21:53)
[2019-05-22] MEDS: THIAMINE HCL 100 MG TABLET (FP) PO SCH (21:53)
[2019-05-23] MEDS: METHADONE HCL 40 MG DISPERSABLE TABLET PO SCH (07:44)
[2019-05-23] MEDS: BACLOFEN 10 MG TABLET (FP) PO PRN (07:45)
[2019-05-23] MEDS: NICOTINE POLACRILEX 4 MG GUM BUC PRN (07:46)
--- NOTE | 2019-05-23 09:11 | PN ---
[facility] CIWA - CIWA Score Nausea/Vomitin-No Nausea/No Vomiting Muscle Tremors: None Anxiety: 1-Mildly Anxious Agitation: 1-Slight > Activity Paroxysmal Sweats: No Perspiration Orientation: 0-Oriented Tacttile Disturbances: 0-None Auditory Disturbances: 0-None Visual Disturbances: 0-None Headache: 1-Very Mild CIWA-Ar Total Score: 3 S COWS - Scale Resting Pulse: 0= [place] 80 or Below Sweatin= No chills or Flushing Restless Observation: 0= Sits Still Pupil Size: 0= Normal to Room Light Bone or Joint Aches: 1= Mild Discomfort Runny Nose/ Eye Tearin= None GI Upset > 30mins: 0= None Tremor Observation of Outstretched Hands: 0= None Yawning Observation: 0= None Anxiety or Irritability: 1=Feels Anxious/Irritable Goose Flesh Skin: 0=Smooth Skin COWS Score: 2 [facility] Progress Note (SOAP) Subjective: alert,irritable,anxious,no complaint Objective: 05/23/19 09:08 Vital Signs Temperature 98.0 F 05/23/19 06:54 Pulse Rate 51 L 05/23/19 06:54 Respiratory Rate 18 05/23/19 06:54 Blood Pressure 101/55 L 05/23/19 06:54 O2 Sat by Pulse Oximetry (%) Assessment: 05/23/19 09:10 detox completed,no withdrawal symptom Plan: discharge today for rehab
[2019-05-23 09:15] VITALS: BP 136/91; PULSE 77; TEMP 97.2
--- NOTE | 2019-05-23 09:16 | DS ---
[facility] Detox Discharge Summary Admission Date: 05/19/19 Discharge Date: 05/23/19 - History Present History: Cannabis Dependence, Opioid Dependence, Sedative Dependence, MMTP Additional Comments: follow up with [facility] as arrangement Pertinent Past History: mmtp - Physical Exam Results Vital Signs: Vital Signs Temperature 98.0 F 05/23/19 06:54 Pulse Rate 51 L 05/23/19 06:54 Respiratory Rate 18 05/23/19 06:54 Blood Pressure 101/55 L 05/23/19 06:54 O2 Sat by Pulse Oximetry (%) Pertinent Admission Physical Exam Findings: withdrawal signs and symptom - Treatment Hospital Course: Detox Protocol Followed, Detoxed Safely, Responded well, Discharged Condition Good, Rehab Referral Accepted - Medication Discharge Medications: Ambulatory Orders Methadone [Dolophine -] 120 mg PO DAILY 03/23/19 - AMA Did Patient Leave Against Medical Advice: No
[2019-05-23] MEDS: NICOTINE 21 MG/24 HOURS TOPICAL PATCH TD SCH (10:12)
[2019-05-23] MEDS: hydrOXYzine PAMOATE 50 MG CAPSULE (FP) PO PRN (10:12)
[2019-05-23] MEDS: BACITRACIN 15 GM TUBE TOPICAL OINTMENT TP SCH (10:12)
[2019-05-23] MEDS: PRENATAL VITAMINS W/ FOLIC ACID TABLET (FP) PO SCH (10:12)
== END 2019-05-23 12:10 | disposition other institution (70) | DRG 773 ==
LOC: YASAS 14:54 → Y3N 18:36
PROVIDERS: ADMIT Surgery; ATTEND Surgery
PROC: HZ2ZZZZ Detoxification Services for Substance Abuse Treatment (ICD-10-PCS; principal; 2019-05-19)
DX: F13.230 Sedative, hypnotic or anxiolytic dependence with withdrawal, uncomplicated (principal); F11.20 Opioid dependence, uncomplicated; F12.20 Cannabis dependence, uncomplicated; F17.210 Nicotine dependence, cigarettes, uncomplicated; F19.24 Other psychoactive substance dependence with psychoactive substance-induced mood disorder; K59.00 Constipation, unspecified; G47.00 Insomnia, unspecified; R11.0 Nausea
CPT/HCPCS: 36415; 80053; 85027; 86593; 87389; J0475; J0735

== ENCOUNTER 2019-05-23 12:54 | Inpatient (IN) | payer OTHER ==
[2019-05-23] MEDS ORDERED: P-EPHED 60MG/TRIPROLIDI 2.5MG TABLET PO PRN (13:21)
[2019-05-23] MEDS ORDERED: MENTHOL/PHENOL 1 EACH UD MM PRN (13:21)
[2019-05-23] MEDS ORDERED: MAGNESIUM HYDROX 2400MG/30ML ORAL SUSPENSION 30 ML CUP PO PRN (13:21)
[2019-05-23] MEDS ORDERED: MAG HYDROX/AL HYDROX/SIMETH 30 ML UNIT-DOSE CUP PO PRN (13:21)
[2019-05-23] MEDS ORDERED: guaiFENesin 200 MG/10 ML 10 ML UNIT-DOSE CUPS PO PRN (13:21)
[2019-05-23] MEDS ORDERED: ACETAMINOPHEN 325 MG TABLET (FP) PO PRN (13:21)
[2019-05-23] MEDS ORDERED: IBUPROFEN 400 MG TABLET (FP) PO PRN (13:21)
[2019-05-23] MEDS ORDERED: LOPERAMIDE HCL 2 MG CAPSULE PO PRN (13:21)
[2019-05-23] MEDS ORDERED: MAGNESIUM CITRATE 300 ML BOTTLE PO PRN (13:21)
--- NOTE | 2019-05-23 13:21 | HP ---
[facility] Rehab Assess/Revision - Admission History Admitted to Rehab from: [facility] Date of Admission to Rehab: 05/23/19 - Vital signs Vital Signs: Vital Signs Period Temp Pulse Resp BP Sys/Shah Pulse Ox Last 24 Hr 98.0 F 70 18 126/83 - Findings Detox History & Physical reviewed: Yes Concur with findings: Yes Comments/Additional Findings: for rehab as protocol Inpatient Rehab Admission - Rehab Decision to Admit Inpatient rehab admission?: Yes - Initial Determination Are CD services needed?: Yes Free of communicable disease: Yes Not in need of hospitalization: Yes - Rehab Admission Criteria Previous failed treatment: Yes Poor recovery environment: Yes Comorbidities: Yes Lacks judgement: No Patient is meeting Inpatient Rehab admission criteria:: Yes
[2019-05-23] MEDS: METHOCARBAMOL 500 MG TABLET PO PRN ×2 (18:47→21:30)
[2019-05-23] MEDS: THIAMINE HCL 100 MG TABLET (FP) PO SCH (21:29)
[2019-05-23] MEDS: hydrOXYzine PAMOATE 50 MG CAPSULE (FP) PO PRN (21:29)
[2019-05-23] MEDS ORDERED: MELATONIN 5 MG TABLETS PO PRN (22:00)
[2019-05-23] MEDS: QUEtiapine FUMARATE 100 MG TABLET (FP) PO SCH (22:15)
[2019-05-24] MEDS: METHADONE HCL 40 MG DISPERSABLE TABLET PO SCH (06:52)
[2019-05-24] MEDS: METHOCARBAMOL 500 MG TABLET PO PRN ×2 (06:56→14:29)
[2019-05-24] MEDS: PRENATAL VITAMINS W/ FOLIC ACID TABLET (FP) PO SCH (10:05)
[2019-05-24] MEDS: hydrOXYzine PAMOATE 50 MG CAPSULE (FP) PO PRN (10:05)
[2019-05-24] MEDS: NICOTINE 14 MG/24 HOURS TOPICAL PATCH TD SCH (14:28)
[2019-05-24] MEDS: NICOTINE POLACRILEX 2 MG GUM BUC PRN ×3 (14:30→21:30)
[2019-05-24] MEDS: THIAMINE HCL 100 MG TABLET (FP) PO SCH (21:28)
[2019-05-24] MEDS: QUEtiapine FUMARATE 100 MG TABLET (FP) PO SCH (21:28)
[2019-05-25] MEDS: METHADONE HCL 40 MG DISPERSABLE TABLET PO SCH (06:39)
[2019-05-25] MEDS: NICOTINE POLACRILEX 2 MG GUM BUC PRN ×3 (06:43→12:38)
[2019-05-25] MEDS: PRENATAL VITAMINS W/ FOLIC ACID TABLET (FP) PO SCH (10:13)
[2019-05-25] MEDS: hydrOXYzine PAMOATE 50 MG CAPSULE (FP) PO PRN ×2 (10:13→21:25)
[2019-05-25] MEDS: NICOTINE 14 MG/24 HOURS TOPICAL PATCH TD SCH (10:14)
[2019-05-25] MEDS: THIAMINE HCL 100 MG TABLET (FP) PO SCH (21:25)
[2019-05-25] MEDS: QUEtiapine FUMARATE 100 MG TABLET (FP) PO SCH (21:25)
[2019-05-26] MEDS: hydrOXYzine PAMOATE 50 MG CAPSULE (FP) PO PRN (06:29)
[2019-05-26] MEDS: METHADONE HCL 40 MG DISPERSABLE TABLET PO SCH (06:30)
[2019-05-26] MEDS: NICOTINE POLACRILEX 2 MG GUM BUC PRN ×3 (06:31→14:11)
[2019-05-26] MEDS: PRENATAL VITAMINS W/ FOLIC ACID TABLET (FP) PO SCH (10:30)
[2019-05-26] MEDS: NICOTINE 14 MG/24 HOURS TOPICAL PATCH TD SCH (10:30)
[2019-05-26] MEDS: METHOCARBAMOL 500 MG TABLET PO PRN ×3 (10:32→21:30)
[2019-05-26] MEDS: BACITRACIN 15 GM TUBE TOPICAL OINTMENT TP SCH (14:09)
--- NOTE | 2019-05-26 15:45 | PN ---
[facility] Progress Note Note: PT IS SP DETOX TO REHAB ON 05/23/19. PT HAS HEALING LACERATION ON LEFT MIDDLE FINGER WHICH HE REPORTS HE SUSTAINED ON 05/17/19 AND RECIEVED CARE AT [facility] IN [place], [place]. PT REPORTS HE HAS DISCHARGE INSTRUCTIONS GIVEN TO HIM FOR WOUND CARE/SPLINT TREATMENT. Vital Signs - 24 hr 05/26/19 05/26/19 05/26/19 00:30 03:30 06:51 Temperature 98.0 F Pulse Rate 65 Respiratory 18 18 16 Rate Blood Pressure 136/84 LEFT MIDDLE FINGER:HEALING LACERATION,CLOSED. NO DRAINAGE. A:FINGER TRUAMA PLAN:APPLY SPLINT NEEDED CONTINUE WOUND CARE.
[2019-05-26] MEDS: QUEtiapine FUMARATE 100 MG TABLET (FP) PO SCH (21:29)
[2019-05-26] MEDS: THIAMINE HCL 100 MG TABLET (FP) PO SCH (21:29)
[2019-05-27] MEDS: METHOCARBAMOL 500 MG TABLET PO PRN ×2 (06:27→21:30)
[2019-05-27] MEDS: METHADONE HCL 40 MG DISPERSABLE TABLET PO SCH (06:28)
[2019-05-27] MEDS: NICOTINE POLACRILEX 2 MG GUM BUC PRN ×2 (10:15→21:31)
[2019-05-27] MEDS: PRENATAL VITAMINS W/ FOLIC ACID TABLET (FP) PO SCH (10:15)
[2019-05-27] MEDS: NICOTINE 14 MG/24 HOURS TOPICAL PATCH TD SCH (10:15)
[2019-05-27] MEDS: BACITRACIN 15 GM TUBE TOPICAL OINTMENT TP SCH (10:15)
[2019-05-27] MEDS: QUEtiapine FUMARATE 100 MG TABLET (FP) PO SCH (21:28)
[2019-05-27] MEDS: THIAMINE HCL 100 MG TABLET (FP) PO SCH (21:28)
[2019-05-28] MEDS: METHOCARBAMOL 500 MG TABLET PO PRN ×2 (06:27→21:20)
[2019-05-28] MEDS: hydrOXYzine PAMOATE 50 MG CAPSULE (FP) PO PRN ×2 (06:27→21:20)
[2019-05-28] MEDS: NICOTINE POLACRILEX 2 MG GUM BUC PRN ×3 (06:27→21:21)
[2019-05-28] MEDS: METHADONE HCL 40 MG DISPERSABLE TABLET PO SCH (06:28)
[2019-05-28] MEDS: BACITRACIN 15 GM TUBE TOPICAL OINTMENT TP SCH (10:05)
[2019-05-28] MEDS: NICOTINE 14 MG/24 HOURS TOPICAL PATCH TD SCH (10:05)
[2019-05-28] MEDS: PRENATAL VITAMINS W/ FOLIC ACID TABLET (FP) PO SCH (10:05)
[2019-05-28] MEDS: QUEtiapine FUMARATE 100 MG TABLET (FP) PO SCH (21:19)
[2019-05-28] MEDS: THIAMINE HCL 100 MG TABLET (FP) PO SCH (21:19)
[2019-05-29] MEDS: METHADONE HCL 40 MG DISPERSABLE TABLET PO SCH (06:45)
[2019-05-29] MEDS: METHOCARBAMOL 500 MG TABLET PO PRN ×2 (06:48→21:10)
[2019-05-29] MEDS: NICOTINE POLACRILEX 2 MG GUM BUC PRN ×3 (06:49→15:00)
[2019-05-29] MEDS: hydrOXYzine PAMOATE 50 MG CAPSULE (FP) PO PRN ×2 (06:51→21:10)
[2019-05-29] MEDS: NICOTINE 14 MG/24 HOURS TOPICAL PATCH TD SCH (10:02)
[2019-05-29] MEDS: BACITRACIN 15 GM TUBE TOPICAL OINTMENT TP SCH (10:02)
[2019-05-29] MEDS: PRENATAL VITAMINS W/ FOLIC ACID TABLET (FP) PO SCH (10:02)
[2019-05-29] MEDS: QUEtiapine FUMARATE 100 MG TABLET (FP) PO SCH (21:09)
[2019-05-29] MEDS: THIAMINE HCL 100 MG TABLET (FP) PO SCH (21:09)
[2019-05-30] MEDS: METHADONE HCL 40 MG DISPERSABLE TABLET PO SCH (06:30)
[2019-05-30] MEDS: hydrOXYzine PAMOATE 50 MG CAPSULE (FP) PO PRN ×2 (06:31→21:16)
[2019-05-30] MEDS: METHOCARBAMOL 500 MG TABLET PO PRN ×2 (06:32→21:16)
[2019-05-30] MEDS: NICOTINE POLACRILEX 2 MG GUM BUC PRN ×3 (06:34→21:18)
[2019-05-30] MEDS: BACITRACIN 15 GM TUBE TOPICAL OINTMENT TP SCH (10:01)
[2019-05-30] MEDS: PRENATAL VITAMINS W/ FOLIC ACID TABLET (FP) PO SCH (10:02)
[2019-05-30] MEDS: NICOTINE 14 MG/24 HOURS TOPICAL PATCH TD SCH (10:02)
[2019-05-30] MEDS: QUEtiapine FUMARATE 100 MG TABLET (FP) PO SCH (21:16)
[2019-05-30] MEDS: THIAMINE HCL 100 MG TABLET (FP) PO SCH (21:17)
[2019-05-31] MEDS: METHADONE HCL 40 MG DISPERSABLE TABLET PO SCH (06:28)
[2019-05-31] MEDS: hydrOXYzine PAMOATE 50 MG CAPSULE (FP) PO PRN (06:32)
[2019-05-31] MEDS: METHOCARBAMOL 500 MG TABLET PO PRN (06:32)
[2019-05-31] MEDS: NICOTINE POLACRILEX 2 MG GUM BUC PRN ×2 (06:32→09:41)
[2019-05-31] MEDS: BACITRACIN 15 GM TUBE TOPICAL OINTMENT TP SCH (09:40)
[2019-05-31] MEDS: PRENATAL VITAMINS W/ FOLIC ACID TABLET (FP) PO SCH (09:40)
[2019-05-31] MEDS: NICOTINE 14 MG/24 HOURS TOPICAL PATCH TD SCH (09:40)
[2019-05-31] MEDS: QUEtiapine FUMARATE 100 MG TABLET (FP) PO SCH (22:09)
[2019-05-31] MEDS: THIAMINE HCL 100 MG TABLET (FP) PO SCH (22:10)
[2019-06-01] MEDS: METHADONE HCL 40 MG DISPERSABLE TABLET PO SCH (06:15)
[2019-06-01] MEDS: NICOTINE 14 MG/24 HOURS TOPICAL PATCH TD SCH (10:24)
[2019-06-01] MEDS: PRENATAL VITAMINS W/ FOLIC ACID TABLET (FP) PO SCH (10:24)
[2019-06-01] MEDS: BACITRACIN 15 GM TUBE TOPICAL OINTMENT TP SCH (10:24)
[2019-06-01] MEDS: THIAMINE HCL 100 MG TABLET (FP) PO SCH (21:57)
[2019-06-01] MEDS: QUEtiapine FUMARATE 100 MG TABLET (FP) PO SCH (21:57)
[2019-06-02] MEDS: METHADONE HCL 40 MG DISPERSABLE TABLET PO SCH (06:19)
[2019-06-02] MEDS: NICOTINE POLACRILEX 2 MG GUM BUC PRN ×2 (06:20→10:15)
[2019-06-02 07:06] VITALS: BP 142/76; PULSE 74; TEMP 98.4
[2019-06-02] MEDS: BACITRACIN 15 GM TUBE TOPICAL OINTMENT TP SCH (10:14)
[2019-06-02] MEDS: PRENATAL VITAMINS W/ FOLIC ACID TABLET (FP) PO SCH (10:14)
[2019-06-02] MEDS: NICOTINE 14 MG/24 HOURS TOPICAL PATCH TD SCH (10:14)
--- NOTE | 2019-06-02 12:44 | PN ---
[facility] Progress Note (SOAP) Subjective: PT REQUESTS FOR EARLY DISCHARGE TODAY. PT MET WITH COUNSELOR RUTHIE CORDON AND HAS BEEN REFERRED TO CD AFTERCARE AT [facility]. PT REPORTS HE HAS NO PCP, PT HAS BEEN REFERRED TO PRIMARY CARE AT [facility], [place]. PT IS CURRENTLY ON [facility] PROGRAM. ALERT O X 3. DENIES S/H/I. Objective: 06/02/19 12:46 Vital Signs 06/02/19 07:05 Temperature 98.4 F Pulse Rate 74 Respiratory 18 Rate Blood Pressure 142/76 Home Medications Medication Instructions Recorded Methadone [Dolophine -] 120 mg PO DAILY 03/23/19 Assessment: 06/02/19 12:46 NAD MEDICALLY STABLE dX:XANAX USE DISORDER MARIJUANA DEPENDENCE METHADONE MAINTENANCE [facility] Inpatient Services Medical - Diagnosis (1) Uncomplicated sedative, hypnotic or anxiolytic withdrawal Current Visit: Yes Status: Chronic (2) Withdrawal seizures Qualifiers: Complication of substance-induced condition: with unspecified complication Qualified Code(s): F19.239 - Other psychoactive substance dependence with withdrawal, unspecified; R56.9 - Unspecified convulsions Current Visit: Yes Status: Suspected (3) Cannabis dependence Current Visit: Yes Status: Chronic (4) Methadone maintenance therapy patient Current Visit: Yes Status: Chronic (5) Nicotine dependence Qualifiers: Nicotine product type: cigarettes Substance use status: uncomplicated Qualified Code(s): F17.210 - Nicotine dependence, cigarettes, uncomplicated Current Visit: Yes Status: Chronic (6) Injury, finger Qualifiers: Encounter type: subsequent encounter Laterality: left Qualified Code(s): S69.92XD - Unspecified injury of left wrist, hand and finger(s), subsequent encounter Current Visit: Yes Status: Acute Plan: FOLLOW UP WITH CD AFTERCARE RECOMMENDED/MMTP PROGRAM. FOLLOW UP WITH PRIMARY CARE WITHIN 1-2 WEEKS AFTER DISCHARGE.
== END 2019-06-02 12:55 | disposition home or self-care (01) | DRG 773 ==
LOC: YASAS 12:54 → Y5N 12:56
PROVIDERS: ADMIT Neuromusculoskeletal Medicine & OMM; ATTEND Neuromusculoskeletal Medicine & OMM
PROC: HZ2ZZZZ Detoxification Services for Substance Abuse Treatment (ICD-10-PCS; principal; 2019-05-23)
DX: F13.20 Sedative, hypnotic or anxiolytic dependence, uncomplicated (principal); F11.20 Opioid dependence, uncomplicated; F12.20 Cannabis dependence, uncomplicated; F17.210 Nicotine dependence, cigarettes, uncomplicated; S61.213D Laceration without foreign body of left middle finger without damage to nail, subsequent encounter; X58.XXXD Exposure to other specified factors, subsequent encounter

== ENCOUNTER 2021-02-11 14:13 | Inpatient (IN) | payer OTHER ==
[2021-02-11 17:50] VITALS: BMI 19.9
[2021-02-11] MEDS ORDERED: MAG HYDROX/AL HYDROX/SIMETH 30 ML UNIT-DOSE CUP PO PRN (19:45)
[2021-02-11] MEDS ORDERED: BISMUTH SUBSALICYLATE 524 MG/30 ML UD PO PRN (19:45)
[2021-02-11] MEDS ORDERED: cloNIDine HCL 0.1 MG TABLET PO PRN (19:45)
[2021-02-11] MEDS ORDERED: ACETAMINOPHEN 325 MG TABLET (FP) PO PRN (19:45)
[2021-02-11] MEDS ORDERED: ONDANSETRON *ODT* 4 MG TABLET SL PRN (19:45)
[2021-02-11] MEDS ORDERED: MAGNESIUM HYDROX 2400MG/30ML ORAL SUSPENSION 30 ML CUP PO PRN (19:45)
[2021-02-11] MEDS ORDERED: MAGNESIUM CITRATE 300 ML BOTTLE PO PRN (19:45)
[2021-02-11] MEDS ORDERED: MENTHOL/PHENOL 1 EACH UD MM PRN (19:45)
[2021-02-11] MEDS ORDERED: METHADONE HCL 10 MG TABLET (FOR DETOX USE ONLY) PO ONE (19:45)
[2021-02-11] MEDS ORDERED: IBUPROFEN 400 MG TABLET (FP) PO PRN (19:45)
[2021-02-11] MEDS: THIAMINE HCL 100 MG TABLET (FP) PO SCH (21:39)
[2021-02-11] MEDS: hydrOXYzine PAMOATE 25 MG CAPSULE (FP) PO SCH (21:39)
[2021-02-11] MEDS: MELATONIN 5 MG TABLETS PO SCH (21:40)
[2021-02-11] MEDS: diazePAM 5 MG TABLET PO SCH (22:22)
[2021-02-11] MEDS: NICOTINE POLACRILEX 2 MG GUM BUC PRN (23:52)
[2021-02-12] MEDS: hydrOXYzine PAMOATE 25 MG CAPSULE (FP) PO SCH ×5 (05:11→22:29)
[2021-02-12] MEDS: diazePAM 5 MG TABLET PO SCH ×4 (05:11→22:28)
[2021-02-12] MEDS ORDERED: METHADONE HCL 5 MG TABLET (FOR DETOX USE ONLY) ONE (09:16)
[2021-02-12] MEDS ORDERED: METHADONE HCL 10 MG TABLET (FOR DETOX USE ONLY) ONE (09:16)
[2021-02-12 09:52] LABS: HEMATOCRIT 42.8 % (35.4-49); HEMOGLOBIN 13.9 GM/dL (11.7-16.9); MCH 27.5 pg (25.7-33.7); MCHC 32.5 g/dl (32.0-35.9); MEAN CELL VOLUME 84.6 fl (80-96); MEAN PLT VOLUME 7.6 fl (7.5-11.1); PLATELET COUNT 191 K/MM3 (134-434); RBC 5.06 M/mm3 (4.00-5.60); RDW 14.9 % (11.9-15.9); WHITE BLOOD COUNT 4.2 K/mm3 (4.0-10.0)
[2021-02-12] MEDS ORDERED: METHADONE (DETOX) 20 MG, METHADONE (DETOX) 5 MG PO ONE (10:00)
[2021-02-12 10:27] LABS: POTASSIUM 4.2 mmol/L (3.5-5.1)
[2021-02-12 10:30] LABS: CALCIUM 8.6 mg/dL (8.5-10.1)
[2021-02-12 10:31] LABS: ALBUMIN 3.2 g/dl (3.4-5.0); BLOOD UREA NITROGEN 15.5 mg/dL (7-18)
[2021-02-12 10:34] LABS: CREATININE 0.8 mg/dL (0.55-1.3)
[2021-02-12 10:35] LABS: BILIRUBIN,TOTAL 0.6 mg/dL (0.2-1)
[2021-02-12 10:36] LABS: TOT PROT 6.4 g/dl (6.4-8.2)
[2021-02-12] MEDS: PRENATAL VITAMINS W/ FOLIC ACID TABLET (FP) PO SCH (11:00)
[2021-02-12] MEDS: NICOTINE 14 MG/24 HOURS TOPICAL PATCH TD SCH (11:00)
[2021-02-12] MEDS: NICOTINE POLACRILEX 2 MG GUM BUC PRN (11:01)
[2021-02-12] MEDS: METHOCARBAMOL 500 MG TABLET PO PRN ×2 (12:31→18:41)
[2021-02-12] MEDS: diazePAM 5 MG TABLET PO PRN (14:39)
[2021-02-12] MEDS: MELATONIN 5 MG TABLETS PO SCH (22:29)
[2021-02-12] MEDS: THIAMINE HCL 100 MG TABLET (FP) PO SCH (22:29)
[2021-02-13] MEDS: diazePAM 5 MG TABLET PO SCH ×3 (05:34→22:31)
[2021-02-13] MEDS: hydrOXYzine PAMOATE 25 MG CAPSULE (FP) PO SCH ×5 (05:35→22:31)
[2021-02-13] MEDS: diazePAM 5 MG TABLET PO PRN ×2 (08:16→18:13)
[2021-02-13] MEDS ORDERED: METHADONE HCL 10 MG TABLET (FOR DETOX USE ONLY) PO ONE (10:00)
[2021-02-13] MEDS: METHOCARBAMOL 500 MG TABLET PO PRN ×2 (10:13→22:30)
[2021-02-13] MEDS: PRENATAL VITAMINS W/ FOLIC ACID TABLET (FP) PO SCH (10:13)
[2021-02-13] MEDS: NICOTINE 14 MG/24 HOURS TOPICAL PATCH TD SCH (10:13)
[2021-02-13] MEDS: ACETAMINOPHEN 325 MG TABLET (FP) PO PRN (10:15)
[2021-02-13] MEDS: NICOTINE POLACRILEX 2 MG GUM BUC PRN ×2 (10:17→17:52)
[2021-02-13] MEDS ORDERED: cloNIDine HCL 0.1 MG TABLET PO PRN (14:34)
[2021-02-13] MEDS ORDERED: QUEtiapine FUMARATE 25 MG TABLET PO ONE (14:37)
[2021-02-13 16:12] LABS: URINE APPEARANCE CLEAR; URINE BILIRUBIN NEGATIVE (NEGATIVE); URINE COLOR YELLOW; URINE GLUCOSE (UA) NEGATIVE (NEGATIVE); URINE KETONE NEGATIVE (NEGATIVE); URINE LEUK ESTERASE NEGATIVE (NEGATIVE); URINE NITRITE NEGATIVE (NEGATIVE); URINE PROTEIN NEGATIVE (NEGATIVE); URINE UROBILINOGEN 0.2 mg/dL (0.2-1.0)
[2021-02-13] MEDS: MELATONIN 5 MG TABLETS PO SCH (22:31)
[2021-02-13] MEDS: THIAMINE HCL 100 MG TABLET (FP) PO SCH (22:31)
[2021-02-14] MEDS: diazePAM 5 MG TABLET PO PRN ×4 (05:06→19:24)
[2021-02-14] MEDS: hydrOXYzine PAMOATE 25 MG CAPSULE (FP) PO SCH ×5 (05:06→22:28)
[2021-02-14] MEDS: diazePAM 5 MG TABLET PO SCH ×2 (05:07→18:32)
[2021-02-14] MEDS: METHOCARBAMOL 500 MG TABLET PO PRN ×3 (06:37→19:25)
[2021-02-14] MEDS ORDERED: METHADONE HCL 5 MG TABLET (FOR DETOX USE ONLY) ONE (09:39)
[2021-02-14] MEDS ORDERED: METHADONE HCL 10 MG TABLET (FOR DETOX USE ONLY) ONE (09:40)
[2021-02-14] MEDS ORDERED: METHADONE (DETOX) 10 MG, METHADONE (DETOX) 5 MG PO ONE (10:00)
[2021-02-14] MEDS: NICOTINE 14 MG/24 HOURS TOPICAL PATCH TD SCH (10:53)
[2021-02-14] MEDS: PRENATAL VITAMINS W/ FOLIC ACID TABLET (FP) PO SCH (10:53)
[2021-02-14] MEDS: ACETAMINOPHEN 325 MG TABLET (FP) PO PRN (13:01)
[2021-02-14] MEDS: NICOTINE POLACRILEX 2 MG GUM BUC PRN ×2 (13:53→19:29)
[2021-02-14] MEDS ORDERED: LOPERAMIDE HCL 2 MG CAPSULE PO ONE (16:22)
[2021-02-14] MEDS ORDERED: cloNIDine HCL 0.1 MG TABLET PO PRN (16:30)
[2021-02-14] MEDS: THIAMINE HCL 100 MG TABLET (FP) PO SCH (22:27)
[2021-02-14] MEDS: GABAPENTIN 100 MG CAPSULE PO SCH (22:27)
[2021-02-14] MEDS: MELATONIN 5 MG TABLETS PO SCH (22:28)
[2021-02-15] MEDS: METHOCARBAMOL 500 MG TABLET PO PRN ×2 (02:48→18:08)
[2021-02-15] MEDS: hydrOXYzine PAMOATE 25 MG CAPSULE (FP) PO SCH ×5 (05:51→22:38)
[2021-02-15] MEDS: GABAPENTIN 100 MG CAPSULE PO SCH ×3 (05:51→22:38)
[2021-02-15] MEDS ORDERED: diazePAM 5 MG TABLET PO ONE (06:00)
[2021-02-15] MEDS ORDERED: METHADONE HCL 10 MG TABLET (FOR DETOX USE ONLY) PO ONE (10:00)
[2021-02-15] MEDS ORDERED: DIPHENOXYLATE 2.5/ATROPINE.025 1 COMBO TABLET PO ONE (10:07)
[2021-02-15] MEDS: NICOTINE 14 MG/24 HOURS TOPICAL PATCH TD SCH (10:08)
[2021-02-15] MEDS: PRENATAL VITAMINS W/ FOLIC ACID TABLET (FP) PO SCH (10:08)
[2021-02-15] MEDS: FAMOTIDINE 20 MG TABLET PO SCH ×2 (11:00→22:38)
[2021-02-15] MEDS: NICOTINE POLACRILEX 2 MG GUM BUC PRN (19:38)
[2021-02-15] MEDS ORDERED: SUVOREXANT 10 MG TABLET PO PRN (22:00)
[2021-02-15] MEDS: THIAMINE HCL 100 MG TABLET (FP) PO SCH (22:38)
[2021-02-15] MEDS: MELATONIN 5 MG TABLETS PO SCH (22:39)
[2021-02-16] MEDS ORDERED: METHADONE HCL 5 MG TABLET (FOR DETOX USE ONLY) PO ONE (06:00)
[2021-02-16] MEDS: hydrOXYzine PAMOATE 25 MG CAPSULE (FP) PO SCH (06:56)
[2021-02-16] MEDS: GABAPENTIN 100 MG CAPSULE PO SCH (06:56)
[2021-02-16] MEDS: METHOCARBAMOL 500 MG TABLET PO PRN (07:00)
[2021-02-16 07:01] VITALS: BP 146/62; PULSE 72; TEMP 97.1
== END 2021-02-16 09:15 | disposition other institution (70) | DRG 773 ==
LOC: YASAS 14:13 → Y6N 20:23
PROVIDERS: ADMIT Allergy & Immunology; ATTEND Allergy & Immunology
PROC: HZ2ZZZZ Detoxification Services for Substance Abuse Treatment (ICD-10-PCS; principal; 2021-02-11)
DX: F11.23 Opioid dependence with withdrawal (principal); F10.230 Alcohol dependence with withdrawal, uncomplicated; F13.230 Sedative, hypnotic or anxiolytic dependence with withdrawal, uncomplicated; F15.10 Other stimulant abuse, uncomplicated; F12.20 Cannabis dependence, uncomplicated; F17.210 Nicotine dependence, cigarettes, uncomplicated; F19.282 Other psychoactive substance dependence with psychoactive substance-induced sleep disorder; F19.280 Other psychoactive substance dependence with psychoactive substance-induced anxiety disorder; F39 Unspecified mood [affective] disorder; F31.9 Bipolar disorder, unspecified; F41.9 Anxiety disorder, unspecified; R56.9 Unspecified convulsions; K21.9 Gastro-esophageal reflux disease without esophagitis; K59.00 Constipation, unspecified
CPT/HCPCS: 36415; 80053; 81003; 85027; 86780; C9803; J0735; U0003